=== PATIENT | male | born 1990 | race Two or more races ===

== ENCOUNTER 2021-09-24 21:10 | Emergency (ER) | payer MEDICAID, OTHER ==
[~2021-09-24] VITALS: Ht 167.6 cm; Wt 62.1 kg
[2021-09-24 22:45] VITALS: BP 132/82
[2021-09-24] MEDS ORDERED: KETOROLAC TROMETH 30 MG/ML 1ML VIAL IM ONE (23:15)
[2021-09-25] MEDS ORDERED: IBUP800T27 PO (01:37)
== END 2021-09-25 06:33 | disposition home or self-care (01) ==
LOC: ER 21:10
DX: S92.255A Nondisplaced fracture of navicular [scaphoid] of left foot, initial encounter for closed fracture (principal); V43.52XA Car driver injured in collision with other type car in traffic accident, initial encounter; Y93.89 Activity, other specified; Y92.488 Other paved roadways as the place of occurrence of the external cause; Y99.8 Other external cause status
CPT/HCPCS: 29125; 73110; 73130; 99284; J1885

== ENCOUNTER 2021-12-20 00:50 | Emergency (ER) | payer MEDICAID ==
[~2021-12-20] VITALS: Ht 170.2 cm; Wt 62.1 kg
[~2021-12-20 00:50] MED LIST: IBUP800T27 PO
[2021-12-20 02:12] LABS: Basophils # (auto) 0 10 ^3/uL (0-0.2); Basophils % (auto) 0.5 % (0.0-2.0); Eosinophils # (auto) 0.1 10 ^3/uL (0-0.8); Eosinophils % (auto) 1.7 % (0.0-7.0); Hematocrit 45.2 % (41.0-53.0); Hemoglobin 15.9 g/dL (13.5-17.5); Lymphocytes % (auto) 33.2 % (10.0-50.0); Mean Corpuscular Hemoglobin 31.3 pg (28.0-32.0); Mean Corpuscular Hgb Conc. 35.2 g/dL (32.0-36.0); Monocytes # (auto) 0.5 10 ^3/uL (0-1.3); Monocytes % (auto) 8.6 % (0.0-12.0); Neutrophils # (auto) 3.4 10 ^3/uL (1.6-8.6); Red Blood Cells 5.08 10^6/uL (4.5-5.90); Red Cell Distribution Width 12.6 % (11.8-14.3)
[2021-12-20 02:27] LABS: Albumin 4.2 g/dL (3.4-5.0); Calcium 8.8 mg/dL (8.5-10.1); Magnesium 2.6 mg/dL (1.6-2.6); Potassium 4.2 mmol/L (3.5-5.1)
[2021-12-20 02:30] LABS: BUN/Creatinine Ratio 15.4
[2021-12-20 02:33] LABS: Bilirubin, Total 0.4 mg/dL (0.2-1.0); Total Protein 7.6 g/dL (6.4-8.2)
[2021-12-20 02:48] LABS: Urine Bacteria None Seen /hpf (None Seen)
[2021-12-20 03:10] LABS: Urine Blood Normal /uL (Negative); Urine Specific Gravity 1.029 (1.001-1.035)
[2021-12-20 03:11] LABS: Alcohol, Urine < 3.0 mg/dL (0-10); Amphetamine Screen, Urine NEGATIVE (NEGATIVE); Barbiturate Scree,Urine NEGATIVE (NEGATIVE); Benzodiazephine Screen, Urine NEGATIVE (NEGATIVE); Cannabinoid Screen, Urine POSITIVE (NEGATIVE); Cocaine Screen, Urine NEGATIVE (NEGATIVE); Opiate Scree,Urine NEGATIVE (NEGATIVE); Phencyclidine Screen, Urine NEGATIVE (NEGATIVE)
[2021-12-20 03:30] LABS: Urine WBC 2 /hpf (0 - 3)
[2021-12-20 04:00] VITALS: BP 128/82
== END 2021-12-20 04:08 | disposition home or self-care (01) ==
LOC: ER 00:50
DX: F10.10 Alcohol abuse, uncomplicated (principal); F19.90 Other psychoactive substance use, unspecified, uncomplicated; F17.210 Nicotine dependence, cigarettes, uncomplicated; Z79.1 Long term (current) use of non-steroidal anti-inflammatories (NSAID); Y90.0 Blood alcohol level of less than 20 mg/100 ml
CPT/HCPCS: 36415; 80053; 80307; 81001; 83735; 85025